=== PATIENT | female | born 1985 | race Caucasian/White ===

== ENCOUNTER 2019-11-24 19:15 | Inpatient (IN) | payer OTHER ==
[2019-11-24] MEDS ORDERED: DINOPROSTONE 10 MG VAGINAL SUPPOSITORY VG ONE (20:37)
[2019-11-24 20:38] VITALS: BMI 31.7
--- NOTE | 2019-11-24 20:44 | HP ---
Past Medical History - Primary Care Physician PCP:: Duran Norman - Admission Chief Complaint: 34yo P0 with at EGA 40w5d admitted for labor induction. History of Present Illness: complicated by post term gestation. Vaginal GBS (+) History Source: Patient, Medical Record Limitations to Obtaining History: No Limitations - Past Medical History PER DIEM NURSE: No: Alzheimer's, CVA, Dementia, Migraine, Multiple Sclerosis, Peripheral Neuropathy, Parkinson's, Seizure, Syncope, TIA, Vertigo, Other Cardiovascular: No: AFIB, Aneurysm, Aortic Insufficiency, Aortic Stenosis, CAD, CHF, Deep Vein Thrombosis, HTN, Hyperlipdemia, TN, Mitral Insufficiency, Mitral Stenosis, Murmur, Pulmonary Hypertension, Other Gastrointestinal: No: Ascites, Cancer, Constipation, Crohn's Disease, Diverticulitis, Diverticulosis, Esophageal Varices, Gastritis, GERD, GI Bleed, Hemorrhoids, Hiatal Hernia, Inflamatory Bowel Disease, Irritable Bowel Disease, Pancreatitis, Peptic Ulcer Disease, Ulcerative Colitis, Other Hepatobiliary: No: Cirrhosis, Cholelithiasis, Cholecystitis, Choledocholithiasis, Hepatitis A, Hepatitis B, Hepatitis C, Other Renal/: No: Renal Failure, Renal Inusuff, BPH, Cancer, Hematuria, Hemodialysis, Neurogenic Bladder, Renal Calculi, UTI, Other Reproductive: No: Ectopic , Endometriosis, Fibroids, PID, Polycystic Ovary Syndrome, Postmenopausal, Other ...: 1 ...Para: 0 ... Weeks Gestation by Dates: 40.5 Heme/Onc: No: Anemia, B12 Deficiency, Bleeding Disorder, Cancer, Current Chemotherapy, Current Radiation Therapy, Hemochromatosis, Hypercoaguable State, Myeloproliferative Synd, Sickle Cell Disease, Sickle Cell Trait, Thrombocytopenia, Other Infectious Disease: No: AIDS, C-Diff, Herpes Zoster, HIV, MRSA, STD's, Tuberculosis, VREF, Other Psych: No: Addictions, Anxiety, Bipolar, Depression, Panic, Psychosis, Schizophrenia, Other Musculoskeletal: No: Bursitis, Chronic low back pain, Hemiparesis, Hemiplegia, Osteoarthritis, Paraplegia, Other Rheumatology: No: Fibromyalgia, Gout, Lupus, Rheumatoid Arthritis, Sarcoidosis, Vasculitis, Other ENT: No: Allergic Rhinitis, Sinusitis, Other Endocrine: No: Rhododendron's Disease, Dodge's Disease, Diabetes Insipidus, Diabetes Mellitus, Hyperparathyroidism, Hyperthyroidism, Hypothyroidism, Osteopenia, SIADH, Other Dermatology: No: Basal Cell, Cellulitis, Eczema, Melanoma, Psoriasis, Squamous Cell, Other - Past Surgical History Past Surgical History: Yes: None Hx Myomectomy: No Hx Transabdominal Cerclage: No Additional Surgical History: Left index finger surgery. 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 History of Recent Travel: No Home Medications - Allergies Allergies/Adverse Reactions: Allergies Allergy/AdvReac Type Severity Reaction Status Date / Time No Known Allergies Allergy Verified 11/24/19 20:46 Family Medical History Family Hx Cancer: Grandmother (maternal), Grandfather (maternal) Review of Systems - Review of Systems Constitutional: reports: No Symptoms Eyes: reports: No Symptoms HENT: reports: No Symptoms Neck: reports: No Symptoms Cardiovascular: reports: No Symptoms Respiratory: reports: No Symptoms Gastrointestinal: reports: No Symptoms Genitourinary: reports: No Symptoms Breasts: reports: No Symptoms Reported Musculoskeletal: reports: No Symptoms Integumentary: reports: No Symptoms Neurological: reports: No Symptoms Endocrine: reports: No Symptoms Hematology/Lymphatic: reports: No Symptoms Psychiatric: reports: No Symptoms Pain Intensity: 0 Physical Exam - Maternity Constitutional: Yes: Well Nourished, No Distress, Calm Eyes: Yes: WNL, Conjunctiva Clear, EOM Intact HENT: Yes: WNL, Atraumatic, Normocephalic Neck: Yes: WNL, Supple, Trachea Midline Cardiovascular: Yes: WNL, Regular Rate and Rhythm Lungs: Clear to auscultation, Normal air movement Breast(s): Yes: WNL - Abdominal Exam/OB Fundal Height: 41 Number of Fetuses: Single Presentation: Vertex Contractions: No Heart Rate (range): 150 Heart Rate Location: Midline Category: I Accelerations: Uniform Decelerations: None - Vaginal Exam/OB Vaginal Bleeding: No Speculum Exam: No Dilatation (cm): 1 Effacement (%): 50 Amniotic Membrane Status: Intact Presentation: Vertex/Position Station: -3 (Gynecoid pelvimetry, EFW ~3600 gm by Celestino maneuvers) - Physical Exam Musculoskeletal: Yes: WNL Extremities: Yes: WNL Edema: No Integumentary: Yes: WNL Hemorrhage Risk Assessment - Risk Factors Medium Risk Factors: Yes: None High Risk Factors: Yes: None Risk Score: 1 Risk Level: Medium Risk Imaging - Results Ultrasound: Report Reviewed Assessment/Plan 34yo P0 with at EGA 40w5d admitted for labor induction. Pt is not in labor. Fetus with Category I tracing. Adequate gynecoid pelvimetry on exam. We had long discussion re: risks, benefits, and alternatives of labor induction. I explained the options of expectant management awaiting spontaneous labor, induction of labor, and elective section. The risks of uterine tachysystole, distress, uterine rupture, need for emergency C/S, hemorrhage, infection, scarring, etc. were discussed. We also discussed the risks of meconium aspiration, shoulder dystocia, and anesthesia options. The pt requested to proceed with induction. We discussed the alternative methods of induction with Cervidil, Cytotec, Folley ballon, and pitocin. The pt prefers Cervidil followed by pitocin, if needed.
[2019-11-24] MEDS ORDERED: DEXTROSE 5%-LACTATED RINGERS 1,000 ML IV SCH (20:45)
[2019-11-24 21:51] LABS: BASO % 0.4 % (0-2.0); HEMATOCRIT 32.9 % (32.4-45.2); HEMOGLOBIN 11.2 GM/dL (10.7-15.3); LYMPH % 24.2 % (8-40); MCH 29.9 pg (25.7-33.7); MCHC 33.9 g/dl (32.0-36.0); MEAN CELL VOLUME 88.2 fl (80-96); MEAN PLT VOLUME 10.5 fl (7.5-11.1); MONO % 8.8 % (3.8-10.2); NEUT % 65.6 % (42.8-82.8); PLATELET COUNT 161 K/MM3 (134-434); RBC 3.73 M/mm3 (3.60-5.2); RDW 13.3 % (11.6-15.6); WHITE BLOOD COUNT 7.4 K/mm3 (4.0-10.0)
[2019-11-24 21:58] LABS: INR 0.87 (0.83-1.09); PROTHROMBIN TIME (PATIENT) 10.3 SEC (9.7-13.0)
[2019-11-24 22:01] LABS: ACTIVATED PTT 26.4 SECONDS (25.2-36.5)
[2019-11-24 22:22] LABS: BLOOD UREA NITROGEN 8.2 mg/dL (7-18); CALCIUM 8.2 mg/dL (8.5-10.1); CREATININE 0.5 mg/dL (0.55-1.3); POTASSIUM 3.8 mmol/L (3.5-5.1)
[2019-11-25] MEDS ORDERED: OXYTOCIN 30 UNITS in 0.9% NS 30 UNIT/500 ML INFUS.BAG IVPB ONE (09:03)
--- NOTE | 2019-11-25 09:07 | PN ---
Ante-Partal Exam - Subjective Subjective: Pt w/o complaints. Cervidil was removed. Vital Signs: Vital Signs Temperature 98.0 F 11/25/19 08:00 Pulse Rate 71 11/25/19 08:00 Respiratory Rate 18 11/25/19 08:00 Blood Pressure 123/69 11/25/19 08:00 O2 Sat by Pulse Oximetry (%) Bleeding: No Headache: No Visual changes: No Right upper quadrant pain: No Pain (scale 1-10): 1 - Contractions Contractions: Yes Regularity: Irregular Intensity: Mild Monitor Mode: External - Exam during Labor Heart Rate: 120 Variability: Moderate Heart Rate Location: Midline Category: I Monitor Accelerations: Present Monitor Decelerations: None Exam: Vaginal Dilatation (cm): 2 Effacement (%): 50 Amniotic Membrane Status: Intact Presentation: Vertex Station: -3 - Intrapartum Hemorrhage Risk Medium Risk Factors: None High Risk Factors: None Risk Score: 0 Risk Level: Low Risk - Assessment/Plan Assessment/Plan: 34yo undergoing labor indx. Pt had Cervidil removed now. Fetus with category I tracing and needs no intervention. Pt is not in labor. Cervical exam is more favorable now. Plan to start pitocin. Anticipate .
[2019-11-25] MEDS ORDERED: AMPICILLIN - 2 GM in SODIUM CHLORIDE 100 ML IVPB ONE (09:08)
[2019-11-25] MEDS ORDERED: OXYTOCIN 30 UNITS in 0.9% NS 30 UNIT/500 ML INFUS.BAG IVPB SCH (09:15)
[2019-11-25] MEDS ORDERED: AMPICILLIN SODIUM 2 GM VIAL ONE (12:09)
[2019-11-25] MEDS ORDERED: AMPICILLIN - 1 GM in SODIUM CHLORIDE 100 ML IVPB SCH (12:15)
[2019-11-25] MEDS: AMPICILLIN - 1 GM in SODIUM CHLORIDE 100 ML IVPB SCH ×2 (16:00→20:12)
[2019-11-25] MEDS ORDERED: AMPICILLIN SODIUM 1 GM VIAL ONE ×2 (16:14→20:13)
--- NOTE | 2019-11-25 19:28 | PN ---
Ante-Partal Exam - Subjective Subjective: No complaints. Pitocin is at 12mU Vital Signs: Vital Signs Temperature 98.2 F 11/25/19 19:00 Pulse Rate 57 L 11/25/19 19:00 Respiratory Rate 18 11/25/19 19:00 Blood Pressure 133/76 11/25/19 19:00 O2 Sat by Pulse Oximetry (%) Bleeding: No Headache: No Visual changes: No Right upper quadrant pain: No Pain (scale 1-10): 1 - Contractions Contractions: Yes Regularity: Irregular Intensity: Mild Monitor Mode: External - Exam during Labor Heart Rate: 135 Variability: Moderate Heart Rate Location: Midline Category: I Monitor Accelerations: Present Monitor Decelerations: None Exam: Vaginal Dilatation (cm): 3 Effacement (%): 80 Amniotic Membrane Status: Ruptured (AROM) Amniotic Fluid: Meconium Stained Meconium Staining: Moderate Presentation: Vertex Station: -3 - Intrapartum Hemorrhage Risk Medium Risk Factors: None High Risk Factors: None Risk Score: 0 Risk Level: Low Risk - Assessment/Plan Assessment/Plan: 34yo P0 with atg EGA 40w6d undergoing labor indx. Labor in latent phase. AROM done with meconium stained fluid noted. Fetus with Category I tracing and does not require intervention. Plan to continue pitocin indx.
[2019-11-25] MEDS ORDERED: BUPIVACAINE HCL/PF 0.25% (2.5MG/ML) 10 ML VIAL ONE (19:43)
[2019-11-25] MEDS ORDERED: FENTANYL/BUPIVACAINE/NS/PF - PCEA - 50 ML DISP.SYRIN EP ONE ×2 (19:45→23:09)
[2019-11-25] MEDS ORDERED: NALOXONE HCL 0.4 MG/ML VIAL IVPUSH PRN (20:13)
[2019-11-25] MEDS ORDERED: FENTANYL/BUPIVACAINE/NS/PF - PCEA - 50 ML DISP.SYRIN EP SCH (20:15)
[2019-11-25] MEDS ORDERED: ELECTROLYTE-148 SOLN 1,000 ML IV SCH (21:15)
[2019-11-25] MEDS ORDERED: PCA PUMP NR ONE (23:07)
[2019-11-26] MEDS ORDERED: OXYTOCIN 20 UNITS in 0.9% NS 20 UNIT/1,000 ML INFUS.BAG IV ONE (00:10)
[2019-11-26] MEDS ORDERED: AMPICILLIN SODIUM 1 GM VIAL ONE (00:10)
[2019-11-26] MEDS ORDERED: OXYTOCIN 10 UNITS/ML VIAL IM ONE (02:45)
[2019-11-26] MEDS ORDERED: OXYTOCIN 10 UNITS/ML VIAL ONE (03:00)
[2019-11-26] MEDS ORDERED: WITCH HAZEL 50% (TUCKS) 40 PAD/JAR PAD TP PRN (03:12)
[2019-11-26] MEDS ORDERED: BENZOCAINE 28 GM HEMORRHOIDAL OINTMENT TP PRN (03:12)
[2019-11-26] MEDS ORDERED: BENZOCAINE 20% 57 GM BOTTLE TP PRN (03:12)
[2019-11-26] MEDS ORDERED: BISACODYL 10 MG SUPP.RECT RC PRN (03:12)
[2019-11-26] MEDS ORDERED: METHYLERGONOVINE MALEATE 0.2 MG/1 ML AMP IM PRN (03:12)
[2019-11-26] MEDS ORDERED: OXYTOCIN 20 UNITS in 0.9% NS 20 UNIT/1,000 ML INFUS.BAG IV SCH (03:15)
[2019-11-26 04:19] LABS: CORD BASE EXCESS -9.9 mmol/L (0-2); CORD HCO3 17.6 mmHg (20-29); CORD PCO2 43.9 mmHg (30-78); CORD pH 7.22 (7.14-7.44)
[2019-11-26 04:21] LABS: CORD BASE EXCESS -10.1 mmol/L (0-2); CORD HCO3 18.1 mmHg (20-29); CORD PCO2 47.7 mmHg (30-78); CORD pH 7.197 (7.14-7.44)
[2019-11-26] MEDS: ACETAMINOPHEN 325 MG TABLET (FP) PO PRN (05:48)
[2019-11-26] MEDS: IBUPROFEN 600 MG TABLET (FP) PO PRN (05:49)
[2019-11-26] MEDS: PRENATAL VITAMINS W/ FOLIC ACID TABLET (FP) PO SCH (09:38)
--- NOTE | 2019-11-26 16:34 | PN ---
Delivery - Delivery Vaginal Delivery: No Problems, Spontaneous Type of Anesthesia: Epidural Episiotomy/Laceration: Perineal Extension/lac, 2nd degree EBL (cc): 500 Delivery, Single - Stages of Labor Date 1st Stage Initiatied: 11/25/19 Time 1st Stage Initiated: 20:00 Date 2nd Stage Initiated: 11/26/19 Time 2nd Stage Initiated: 01:00 Date of Delivery: 11/26/19 Time of Delivery: 02:45 Date Placenta Delivered: 11/26/19 Time Placenta Delivered: 02:50 Placenta: Yes: Spontaneous, Normal Configuration - Condition of Biofuels Production Technician/Stucco Mason Present: Yes Name: Lelo Johnston Infant Gender: Female Weight: 4.111 kg Position: Right, OA Total Hours ROM (Hrs/Mins): 7h 25m - 1 Minute Total Score: 9 5 Minutes Total Score: 9 - Feeding Plan Initial Plan: Exclusive throughout hospitalization Benefits of Exclusively reinforced: Yes Remarks - Remarks Remarks: w/o complicatons over 2nd degree perineal laceration. Neonatology present at delivery.
--- NOTE | 2019-11-27 08:57 | PN ---
Post Progress Note - Subjective Subjective: Patient without acute complaints. Reports tolerating oral intake without nausea or vomiting. Ambulating without dizziness. Denies fevers or chills. Pain well controlled with oral pain medication. Desires to breastfeed Passing flatus. Post Day: 1 Type of Delivery: Vital Signs: Vital Signs Temperature 97.7 F 11/27/19 05:00 Pulse Rate 80 11/27/19 05:00 Respiratory Rate 20 11/27/19 05:00 Blood Pressure 103/57 L 11/27/19 05:00 O2 Sat by Pulse Oximetry (%) 98 11/26/19 05:56 Breast Exam: Yes: Soft Uterus: Yes: Fundus Firm Abdomen/GI: Yes: Abdomen soft, Passing flatus, Tolerating PO Lochia: Yes: Rubra Lochia, amount: Moderate Extremities: Yes: Calves non-tender, Edema Activity: Ambulating - Labs Labs: CBC WBC 7.4 K/mm3 (4.0-10.0) 11/24/19 21:07 RBC 3.73 M/mm3 (3.60-5.2) 11/24/19 21:07 Hgb 11.2 GM/dL (10.7-15.3) 11/24/19 21:07 Hct 32.9 % (32.4-45.2) 11/24/19 21:07 MCV 88.2 fl (80-96) 11/24/19 21:07 MCH 29.9 pg (25.7-33.7) 11/24/19 21:07 MCHC 33.9 g/dl (32.0-36.0) 11/24/19 21:07 RDW 13.3 % (11.6-15.6) 11/24/19 21:07 Plt Count 161 K/MM3 (134-434) 11/24/19 21:07 MPV 10.5 fl (7.5-11.1) 11/24/19 21:07 Absolute Neuts (auto) 4.8 K/mm3 (1.5-8.0) 11/24/19 21:07 Neutrophils % 65.6 % (42.8-82.8) 11/24/19 21:07 Lymphocytes % 24.2 % (8-40) 11/24/19 21:07 Monocytes % 8.8 % (3.8-10.2) 11/24/19 21:07 Eosinophils % 1.0 % (0-4.5) 11/24/19 21:07 Basophils % 0.4 % (0-2.0) 11/24/19 21:07 Nucleated RBC % 0 % (0-0) 11/24/19 21:07 Assessment/Plan 34 yo PPD # 1 s/p , afebrile, vital signs stable, doing well 1. Continue routine care. 2. AM CBC with mild asymptomatic anemia 3. Rh positive status, no rhogam indicated. 4. Encourage ambulation 5. Continue oral pain medication 6. Anticipate discharge home day #2
[2019-11-27] MEDS: IBUPROFEN 600 MG TABLET (FP) PO PRN (08:58)
[2019-11-27] MEDS: ACETAMINOPHEN 325 MG TABLET (FP) PO PRN (08:59)
[2019-11-27 09:02] LABS: BASO % 0.7 % (0-2.0); EOS % 0.8 % (0-4.5); HEMATOCRIT 27.3 % (32.4-45.2); HEMOGLOBIN 9.1 GM/dL (10.7-15.3); LYMPH % 20.5 % (8-40); MCH 29.3 pg (25.7-33.7); MCHC 33.3 g/dl (32.0-36.0); MEAN CELL VOLUME 88.1 fl (80-96); MEAN PLT VOLUME 9.9 fl (7.5-11.1); MONO % 5.6 % (3.8-10.2); NEUT % 72.4 % (42.8-82.8); PLATELET COUNT 159 K/MM3 (134-434); RDW 13.4 % (11.6-15.6); WHITE BLOOD COUNT 10.8 K/mm3 (4.0-10.0)
[2019-11-27] MEDS: PRENATAL VITAMINS W/ FOLIC ACID TABLET (FP) PO SCH (10:30)
--- NOTE | 2019-11-27 14:46 | DS ---
Physical Exam-WAREHOUSE HAND Vital Signs: Vital Signs Temperature 97.7 F 11/27/19 05:00 Pulse Rate 80 11/27/19 05:00 Respiratory Rate 20 11/27/19 05:00 Blood Pressure 103/57 L 11/27/19 05:00 O2 Sat by Pulse Oximetry (%) 98 11/26/19 05:56 Constitutional: Yes: Well Nourished, No Distress, Calm Eyes: Yes: WNL, Conjunctiva Clear, EOM Intact HENT: Yes: WNL, Atraumatic, Normocephalic Neck: Yes: WNL, Supple, Trachea Midline Cardiovascular: Yes: WNL, Regular Rate and Rhythm Respiratory: Yes: WNL, Regular, CTA Bilaterally Gastrointestinal: Yes: WNL ...Rectal Exam: Yes: WNL Renal/: Yes: WNL ....Post : Yes: Uterus firm, Uterus non-tender, Slight lochia rubra Breast(s): Yes: WNL Musculoskeletal: Yes: WNL Extremities: Yes: WNL Edema: No Integumentary: Yes: WNL Neurological: Yes: WNL, Alert, Oriented ...Motor Strength: WNL Psychiatric: Yes: WNL, Alert, Oriented Labs: CBC, BMP 11/27/19 08:45 11/24/19 21:07 Delivery - Delivery Vaginal Delivery: No Problems, Spontaneous Type of Anesthesia: Epidural Episiotomy/Laceration: Perineal Extension/lac, 2nd degree EBL (cc): 500 Delivery, Single - Stages of Labor Date 1st Stage Initiatied: 11/25/19 Time 1st Stage Initiated: 20:00 Date 2nd Stage Initiated: 11/26/19 Time 2nd Stage Initiated: 01:00 Date of Delivery: 11/26/19 Time of Delivery: 02:45 Time Placenta Delivered: 02:50 Placenta: Yes: Spontaneous, Normal Configuration - Condition of Technology Coordinator/Polisher And Sander Present: Yes Name: Lelo Johnston Infant Gender: Female Weight: 9 lb 1 oz Position: Right, OA Total Hours ROM (Hrs/Mins): 7h 25m - 1 Minute Total Score: 9 5 Minutes Total Score: 9 - [place] Feeding Plan Initial Plan: Exclusive throughout hospitalization Benefits of Exclusively reinforced: Yes Discharge Summary Problems reviewed: Yes Reason For Visit: INDUCTION Procedures: Principal: Hospital Course: no complication Health Concerns: anemia Plan of Treatment: iron, pnv Condition: Good - Instructions Diet, Activity, Other Instructions: regular diet, no intercourse , follow up office 4 weeks, if fever, pain,. heavy vaginal bleeding call md Referrals: Duran Norman MD [Staff Physician] - Disposition: HOME - Home Medications Comprehensive Discharge Medication List: Ambulatory Orders Vit 93/Iron Fum/Folic [ Formula Tablet] 1 each PO DAILY 11/24/19 Ibuprofen [Motrin -] 600 mg PO TID #21 tablet 11/27/19
[2019-11-27 14:48] VITALS: BP 106/57; PULSE 82; TEMP 97.8
[2019-11-27] MEDS ORDERED: SENNOSIDES/DOCUSATE COMBO (SENNA PLUS) TABLET (UD) PO PRN (22:00)
== END 2019-11-27 15:55 | disposition home or self-care (01) | DRG 807 ==
LOC: JLDR 19:15 → J3W 11-26 05:46
PROVIDERS: ADMIT Obstetrics & Gynecology; ATTEND Obstetrics & Gynecology
PROC: 3E0P7VZ Introduction of Hormone into Female Reproductive, Via Natural or Artificial Opening (ICD-10-PCS; principal; 2019-11-24)
PROC: 10E0XZZ Delivery of Products of Conception, External Approach (ICD-10-PCS; 2019-11-26)
PROC: 10907ZC Drainage of Amniotic Fluid, Therapeutic from Products of Conception, Via Natural or Artificial Opening (ICD-10-PCS; 2019-11-26)
PROC: 0W8NXZZ Division of Female Perineum, External Approach (ICD-10-PCS; 2019-11-26)
DX: O48.0 Post-term pregnancy (principal); Z37.0 Single live birth; Z3A.40 40 weeks gestation of pregnancy; O70.1 Second degree perineal laceration during delivery; O99.824 Streptococcus B carrier state complicating childbirth; O77.0 Labor and delivery complicated by meconium in amniotic fluid
CPT/HCPCS: 36415; 36600; 59409; 80048; 82803; 85025; 85610; 85730; 86780; 86850; 86900; 86901

== ENCOUNTER 2021-07-18 08:15 | Inpatient (IN) | payer OTHER ==
[2021-07-18] MEDS: ELECTROLYTE-148 SOLN 1,000 ML IV SCH ×2 (09:15→14:30)
[2021-07-18] MEDS ORDERED: OXYTOCIN 30 UNITS in 0.9% NS 30 UNIT/500 ML INFUS.BAG IVPB SCH (09:30)
[2021-07-18 10:25] VITALS: BMI 30.7
[2021-07-18] MEDS ORDERED: FENTANYL/BUPIVACAINE/NS/PF - PCEA - 50 ML DISP.SYRIN EP ONE (13:26)
[2021-07-18] MEDS ORDERED: BUPIVACAINE HCL/PF 0.25% (2.5MG/ML) 10 ML VIAL ONE (13:46)
[2021-07-18] MEDS ORDERED: NALOXONE HCL 0.4 MG/ML VIAL IVPUSH PRN (15:17)
[2021-07-18] MEDS ORDERED: FENTANYL/BUPIVACAINE/NS/PF - PCEA - 50 ML DISP.SYRIN EP SCH (15:30)
[2021-07-18] MEDS ORDERED: LIDOCAINE HCL 1% PRESERVATIVE FREE - 30ML VIAL ONE (16:39)
[2021-07-18] MEDS ORDERED: OXYTOCIN 20 UNITS in 0.9% NS 20 UNIT/1,000 ML INFUS.BAG IV ONE (16:39)
[2021-07-18 19:16] LABS: CORD HCO3 21.9 mmHg (20-29); CORD pH 7.159 (7.14-7.44)
[2021-07-18 19:18] LABS: CORD BASE EXCESS -5.2 mmol/L (0-2); CORD HCO3 20.7 mmHg (20-29); CORD PCO2 41.2 mmHg (30-78); CORD pH 7.318 (7.14-7.44)
[2021-07-18] MEDS ORDERED: WITCH HAZEL 50% (TUCKS) 40 PAD/JAR PAD TP PRN (22:17)
[2021-07-18] MEDS ORDERED: ACETAMINOPHEN 325 MG TABLET (FP) PO PRN (22:17)
[2021-07-18] MEDS ORDERED: BISACODYL 10 MG SUPP.RECT RC PRN (22:17)
[2021-07-18] MEDS ORDERED: BENZOCAINE 20% 57 GM BOTTLE TP PRN (22:17)
[2021-07-18] MEDS ORDERED: oxyCODONE HCL 5 MG TABLET PO PRN (22:17)
[2021-07-18] MEDS ORDERED: METHYLERGONOVINE MALEATE 0.2 MG/1 ML AMP IM PRN (22:17)
[2021-07-18] MEDS ORDERED: BENZOCAINE 28 GM HEMORRHOIDAL OINTMENT TP PRN (22:17)
[2021-07-18] MEDS ORDERED: OXYTOCIN 20 UNITS in 0.9% NS 20 UNIT/1,000 ML INFUS.BAG IV SCH (22:30)
[2021-07-19 09:27] LABS: BASO % 0.3 % (0-2.0); EOS % 0.5 % (0-4.5); HEMATOCRIT 27.7 % (32.4-45.2); HEMOGLOBIN 9.2 GM/dL (10.7-15.3); LYMPH % 17.7 % (8-40); MCH 27.6 pg (25.7-33.7); MCHC 33.3 g/dl (32.0-36.0); MEAN PLT VOLUME 9.5 fl (7.5-11.1); MONO % 6.5 % (3.8-10.2); PLATELET COUNT 237 10^3/uL (134-434); RBC 3.34 M/mm3 (3.60-5.2); RDW 13.9 % (11.6-15.6); WHITE BLOOD COUNT 9.9 K/mm3 (4.0-10.0)
[2021-07-19] MEDS: PRENATAL VITAMINS W/ FOLIC ACID TABLET (FP) PO SCH (10:04)
[2021-07-19] MEDS: IBUPROFEN 600 MG TABLET (FP) PO PRN (10:16)
[2021-07-19] MEDS ORDERED: SENNOSIDES/DOCUSATE COMBO (SENNA PLUS) TABLET (UD) PO PRN (22:00)
[2021-07-20] MEDS: IBUPROFEN 600 MG TABLET (FP) PO PRN (09:27)
[2021-07-20] MEDS: PRENATAL VITAMINS W/ FOLIC ACID TABLET (FP) PO SCH (09:27)
[2021-07-20 09:55] VITALS: BP 114/58; PULSE 84; TEMP 97.7
== END 2021-07-20 11:50 | disposition home or self-care (01) | DRG 807 ==
LOC: JLDR 08:15 → J3W 20:26
PROVIDERS: ADMIT Obstetrics & Gynecology; ATTEND Obstetrics & Gynecology
PROC: 0KQM0ZZ Repair Perineum Muscle, Open Approach (ICD-10-PCS; principal; 2021-07-18)
PROC: 10E0XZZ Delivery of Products of Conception, External Approach (ICD-10-PCS; 2021-07-18)
DX: O69.81X0 Labor and delivery complicated by cord around neck, without compression, not applicable or unspecified (principal); Z37.0 Single live birth; O36.63X0 Maternal care for excessive fetal growth, third trimester, not applicable or unspecified; O70.1 Second degree perineal laceration during delivery; O66.0 Obstructed labor due to shoulder dystocia; Z3A.39 39 weeks gestation of pregnancy
CPT/HCPCS: 36415; 36600; 59409; 82803; 85025

== ENCOUNTER 2023-12-31 07:16 | Inpatient (IN) | payer OTHER ==
[2023-12-31 09:13] LABS: BASO % 0.3 % (0-2.0); EOS % 2.5 % (0-4.5); HEMATOCRIT 34.9 % (32.4-45.2); HEMOGLOBIN 11.6 GM/dL (10.7-15.3); LYMPH % 25.3 % (8-40); MCH 29.6 pg (25.7-33.7); MCHC 33.3 g/dl (32.0-36.0); MEAN PLT VOLUME 8.8 fl (7.5-11.1); MONO % 8.2 % (3.8-10.2); NEUT % 63.7 % (42.8-82.8); PLATELET COUNT 177 10^3/uL (134-434); RBC 3.92 M/mm3 (3.60-5.2); RDW 13.9 % (11.6-15.6); WHITE BLOOD COUNT 6.3 K/mm3 (4.0-10.0)
[2023-12-31 09:26] LABS: INR 0.95 (0.83-1.09); PROTHROMBIN TIME (PATIENT) 10.7 SEC (9.7-13.0)
[2023-12-31 09:32] LABS: POTASSIUM 3.8 mmol/L (3.5-5.1)
[2023-12-31 09:34] LABS: BLOOD UREA NITROGEN 7.6 mg/dL (7-18); CALCIUM 8.7 mg/dL (8.5-10.1)
[2023-12-31] MEDS ORDERED: AMPICILLIN SODIUM 2 GM VIAL ONE (09:34)
[2023-12-31 09:38] LABS: CREATININE 0.4 mg/dL (0.55-1.3)
[2023-12-31] MEDS: AMPICILLIN - 2 GM in SODIUM CHLORIDE 100 ML IVPB SCH (09:40)
[2023-12-31 09:44] VITALS: BMI 31.7
[2023-12-31] MEDS ORDERED: OXYTOCIN 30 UNITS in 0.9% NS 30 UNIT/500 ML INFUS.BAG IVPB ONE (10:29)
[2023-12-31] MEDS: OXYTOCIN 30 UNITS in 0.9% NS 30 UNIT/500 ML INFUS.BAG IVPB SCH (10:30)
[2023-12-31] MEDS: ELECTROLYTE-148 SOLN 1,000 ML IV SCH (10:39)
[2023-12-31] MEDS: AMPICILLIN - 2 GM in SODIUM CHLORIDE 100 ML IVPB ONE (13:22)
[2023-12-31] MEDS ORDERED: FENTANYL/BUPIVACAINE/NS/PF - PCEA - 50 ML DISP.SYRIN EP ONE ×2 (14:39→19:02)
[2023-12-31] MEDS ORDERED: AMPICILLIN SODIUM 1 GM VIAL ONE ×2 (14:39→18:26)
[2023-12-31] MEDS ORDERED: NALOXONE HCL 0.4 MG/ML VIAL IVPUSH PRN (14:45)
[2023-12-31] MEDS ORDERED: BUPIVACAINE HCL/PF 0.25% (2.5MG/ML) 10 ML VIAL ONE (14:47)
[2023-12-31] MEDS ORDERED: FENTANYL CITRATE/PF 50 MCG/ML VIAL ONE (14:47)
[2023-12-31] MEDS: AMPICILLIN - 1 GM in DEXTROSE 5%-WATER 100 ML IVPB SCH (15:00)
[2023-12-31] MEDS: FENTANYL/BUPIVACAINE/NS/PF - PCEA - 50 ML DISP.SYRIN EP SCH (15:07)
[2023-12-31] MEDS ORDERED: OXYTOCIN 20 UNITS in 0.9% NS 20 UNIT/1,000 ML INFUS.BAG IV ONE (19:23)
[2023-12-31] MEDS ORDERED: LIDOCAINE HCL 1% PRESERVATIVE FREE - 30ML VIAL ONE (19:23)
[2023-12-31] MEDS: OXYTOCIN 20 UNITS in 0.9% NS 20 UNIT/1,000 ML INFUS.BAG IV SCH (20:00)
[2023-12-31] MEDS ORDERED: BISACODYL 10 MG SUPP.RECT RC PRN (20:21)
[2023-12-31] MEDS ORDERED: BENZOCAINE 20% 57 GM BOTTLE TP PRN (20:21)
[2023-12-31] MEDS ORDERED: WITCH HAZEL 50% (TUCKS) 40 PAD/JAR PAD TP PRN (20:21)
[2023-12-31] MEDS ORDERED: oxyCODONE HCL 5 MG TABLET PO PRN (20:21)
[2023-12-31] MEDS ORDERED: ACETAMINOPHEN 325 MG TABLET (FP) PO PRN (20:21)
[2023-12-31] MEDS ORDERED: BENZOCAINE 28 GM HEMORRHOIDAL OINTMENT TP PRN (20:21)
[2023-12-31 20:54] LABS: CORD BASE EXCESS -2.7 mmol/L (0-2); CORD HCO3 24.8 mmHg (20-29); CORD PCO2 54.2 mmHg (30-78); CORD pH 7.279 (7.14-7.44)
[2023-12-31 20:55] LABS: CORD BASE EXCESS -1.4 mmol/L (0-2); CORD HCO3 22.8 mmHg (20-29); CORD pH 7.407 (7.14-7.44)
[2023-12-31] MEDS: METHYLERGONOVINE MALEATE 0.2 MG/1 ML AMP IM PRN (21:07)
[2023-12-31] MEDS: IBUPROFEN 600 MG TABLET (FP) PO PRN (23:29)
[2024-01-01 07:45] LABS: BASO % 0.2 % (0-2.0); EOS % 1.5 % (0-4.5); HEMATOCRIT 31.2 % (32.4-45.2); HEMOGLOBIN 10.6 GM/dL (10.7-15.3); LYMPH % 17.7 % (8-40); MCH 30.4 pg (25.7-33.7); MCHC 34.1 g/dl (32.0-36.0); MEAN CELL VOLUME 89.1 fl (80-96); MEAN PLT VOLUME 9.1 fl (7.5-11.1); MONO % 6.9 % (3.8-10.2); NEUT % 73.7 % (42.8-82.8); PLATELET COUNT 168 10^3/uL (134-434); RDW 14.1 % (11.6-15.6); WHITE BLOOD COUNT 10.7 K/mm3 (4.0-10.0)
[2024-01-01] MEDS: PRENATAL VITAMINS W/ FOLIC ACID TABLET (FP) PO SCH (10:51)
[2024-01-01] MEDS: FLU VACCINE (FLULAVAL) PF 45 MCG/0.5 ML SYRINGE 2024-2025 IM ONE (11:20)
[2024-01-01] MEDS ORDERED: SENNOSIDES/DOCUSATE COMBO (SENNA PLUS) TABLET (UD) PO PRN (22:00)
[2024-01-02 10:40] VITALS: BP 99/62; PULSE 73; RESP 16; TEMP 98.3
== END 2024-01-02 10:30 | disposition home or self-care (01) | DRG 807 ==
LOC: JLDR 07:16 → J3W 23:10
PROVIDERS: ADMIT Obstetrics & Gynecology; ATTEND Obstetrics & Gynecology
PROC: 0KQM0ZZ Repair Perineum Muscle, Open Approach (ICD-10-PCS; principal; 2023-12-31)
PROC: 10E0XZZ Delivery of Products of Conception, External Approach (ICD-10-PCS; 2023-12-31)
DX: O70.1 Second degree perineal laceration during delivery (principal); Z37.0 Single live birth; Z3A.39 39 weeks gestation of pregnancy
CPT/HCPCS: 36415; 36600; 59409; 80048; 82803; 85025; 85610; 85730; 86780; 86850; 86900; 86901; 90656; G0008